=== PATIENT | male | born 1965 | race Caucasian/White ===

== ENCOUNTER 2022-05-08 05:51 | Day surgery (SDC) | payer BC ==
[2022-05-04 14:01] VITALS: BMI 36.5
[2022-05-08] MEDS ORDERED: Lidocaine 1% (PF) 30 ML VIAL ONE (06:38)
[2022-05-08] MEDS ORDERED: Bupivacaine HCl 0.5%/Epinephrine 1:200,000/PF 30 ml Vial ONE (06:38)
[2022-05-08 06:51] LABS: #Basophils 0.1 thou/uL (0.0-0.2); #Eosinphils 0.2 thou/uL (0.0-0.7); #Lymphocytes 2.2 thou/uL (1.20-3.40); #Monocytes 0.6 thou/uL (0.11-0.59); #Neutrophils 3.5 thou/uL (1.40-6.50); %Basophils 0.8 % (0.0-1.0); %Eosinophils 3.7 % (0.0-10.0); %Lymphocytes 33.7 % (21.0-51.0); %Monocytes 8.5 % (0.0-10.0); %Neutrophils 53.3 % (42.0-75.0); Hemoglobin 17.1 g/dL (14.0-18.0); Mean Corpuscular HGB CONC 33.8 g/dL (32.0-36.0); Mean Corpuscular Hemoglobin 31.5 pg (27.0-31.0); Mean Corpuscular Volume 93.1 fl (78.0-98.0); Mean Platelet Volume 10.6 fL (7.4-10.4); Platelet Count 170 10x3/uL (130-400); RBC Distribution Width 11.6 % (11.5-14.5); Red Blood Cell (RBC) Count 5.43 mill/uL (4.70-6.10); White Blood Cell (WBC) Count 6.6 10x3/uL (4.8-10.8)
[2022-05-08] MEDS ORDERED: fentaNYL PF 100 MCG/2 ML SYRINGE ONE ×2 (06:59)
[2022-05-08] MEDS ORDERED: HYDROmorphone 0.5 MG/0.5 ML SYRINGE ONE (06:59)
[2022-05-08 07:11] LABS: Anion Gap 16 mmol/L (10-20); BUN (Urea Nitrogen) 14 mg/dL (8.4-25.7); Calc. Creatinine Clearance 118 mL/min (70-130); Calcium 9.5 mg/dL (7.8-10.44); Carbon Dioxide 22 mmol/L (22-29); Chloride 103 mmol/L (98-107); Estimated GFR 83; Glucose 141 mg/dL (70-105); Potassium 3.6 mmol/L (3.5-5.1); Sodium 137 mmol/L (136-145)
[2022-05-08] MEDS ORDERED: Sodium Chloride 0.9% 100 ML ONE (07:19)
[2022-05-08] MEDS ORDERED: CEFAZOLIN 2 GM VIAL ONE (07:19)
[2022-05-08] MEDS ORDERED: Famotidine/PF 20 mg/2ml Vial ONE (07:28)
[2022-05-08] MEDS ORDERED: SUGAMMADEX SODIUM 200 MG/2 ML VIAL ONE (07:28)
[2022-05-08] MEDS ORDERED: Succinylcholine Chloride 100 MG/5 ML SYRINGE FS ONE (07:33)
[2022-05-08] MEDS ORDERED: Dexamethasone 20 MG/5 ML VIAL ONE (07:33)
[2022-05-08] MEDS ORDERED: PROPOFOL 200 MG/20 ML VIAL ONE (07:33)
[2022-05-08] MEDS ORDERED: Ketorolac Tromethamine 30 MG/ML VIAL ONE (07:33)
[2022-05-08] MEDS ORDERED: Rocuronium Bromide 10 MG/ML (10ML VIAL) ONE (07:33)
[2022-05-08] MEDS ORDERED: Metoclopramide HCl 10 MG/2 ML VIAL ONE (07:33)
[2022-05-08] MEDS ORDERED: Ondansetron PF 4 MG/2 ML Vial ONE (07:33)
[2022-05-08] MEDS ORDERED: Lidocaine 1% PF 5 ML VIAL ONE (07:33)
[2022-05-08] MEDS ORDERED: Fentanyl 100 MCG/2 ML VIAL ONE (08:58)
== END 2022-05-08 10:33 | disposition home or self-care (01) ==
LOC: SDC 05:51
PROVIDERS: ATTEND Surgery
PROC: 0YU54JZ Supplement Right Inguinal Region with Synthetic Substitute, Percutaneous Endoscopic Approach (ICD-10-PCS; principal; 2022-05-08)
PROC: 8E0W4CZ Robotic Assisted Procedure of Trunk Region, Percutaneous Endoscopic Approach (ICD-10-PCS; principal; 2022-05-08)
DX: K40.90 Unilateral inguinal hernia, without obstruction or gangrene, not specified as recurrent (principal); E78.00 Pure hypercholesterolemia, unspecified; E11.9 Type 2 diabetes mellitus without complications; M10.9 Gout, unspecified; I10 Essential (primary) hypertension; F17.220 Nicotine dependence, chewing tobacco, uncomplicated; E66.9 Obesity, unspecified; Z68.36 Body mass index [BMI] 36.0-36.9, adult; Z79.82 Long term (current) use of aspirin; Z79.84 Long term (current) use of oral hypoglycemic drugs; Z79.899 Other long term (current) drug therapy
CPT/HCPCS: 80048; 85025; 93005; 93010; C1713; J1100; J1170; J1885; J2001; J2405; J2704; J2765; J3010; J3490; S0028